=== PATIENT | female | born 1960 | race Hispanic/Latino ===

== ENCOUNTER 2018-02-01 21:12 | Observation (INO) | payer OTHER ==
[~2018-02-01] VITALS: Ht 149.9 cm; Wt 83.4 kg
[2018-02-01] MEDS ORDERED: LIDOCAINE HCL 2% VISCOUS 15 ML UDCUP ONE (21:41)
[2018-02-01] MEDS ORDERED: MAG HYDROX/AL HYDROX/SIMETH ES 30 ML SUSP UDCUP ONE (21:41)
[2018-02-01 21:42] LABS: BASOPHILS % (AUTO) 0.5 % (0.0-5.0); EOSINOPHILS % (AUTO) 2.8 % (0.0-8.0); HEMATOCRIT 38.8 % (36-48); LYMPHOCYTES % (AUTO) 28.5 % (21.0-51.0); MEAN CORPUSCULAR HEMOGLOBIN 27.5 pg (27.0-33.0); MEAN CORPUSCULAR HGB CONC 33.6 g/dL (32.0-36.0); MEAN CORPUSCULAR VOLUME 81.6 fL (79-99); MONOCYTES % (AUTO) 6.5 % (3.0-13.0); NEUTROPHILS % (AUTO) 61.7 % (40.0-77.0); PLATELET COUNT (AUTO) 284 K/uL (130-400); RED BLOOD CELL COUNT(AUTO) 4.76 MIL/uL (4.00-5.50); RED CELL DISTRIBUTION WIDTH 13.5 % (11.0-15.5); WHITE BLOOD COUNT (AUTO) 11.2 K/uL (4.8-10.8)
[2018-02-01] MEDS ORDERED: ACETAMINOPHEN-CODEINE ELIXIR 5 ML UDCUP ONE (21:42)
[2018-02-01 21:56] LABS: CREATININE 0.9 mg/dL (0.5-1.5); POTASSIUM 3.6 mmol/L (3.5-5.1)
[2018-02-01 21:58] LABS: PARTIAL THROMBOPLASTIN TIME 26.4 SEC (26.3-35.5); PROTHROMBIN TIME 10.5 SEC (9.6-11.6)
[2018-02-01 22:10] LABS: ALBUMIN 3.5 g/dL (3.5-5.0); BILIRUBIN,TOTAL 0.3 mg/dL (0.2-1.0); CREATINE KINASE MB 1.7 ng/mL (0.5-3.6); TOTAL PROTEIN, SERUM 7.6 g/dL (6.0-8.3)
[2018-02-01] MEDS ORDERED: NITROGLYCERIN 1GM/1 INCH PACKET TD ONE (23:29)
[2018-02-02] MEDS ORDERED: ENOXAPARIN SODIUM 30 MG/0.3 ML SQ ONE (04:46)
[2018-02-02] MEDS ORDERED: METOPROLOL TARTRATE 50 MG TAB ONE (04:46)
[2018-02-02] MEDS ORDERED: ASPIRIN 81MG TAB.CHEW ONE (04:46)
[2018-02-02] MEDS ORDERED: NITROGLYCERIN 1GM/1 INCH PACKET TD ONE ×2 (04:47→13:39)
[2018-02-02 05:56] LABS: CREATINE KINASE, TOTAL 73 U/L (21-232); MYOGLOBIN 28 ng/mL (10-92); TROPONIN I < 0.04 ng/mL (0.00-0.06)
[2018-02-02] MEDS ORDERED: MORPHINE SULFATE 4 MG/1ML SYG ONE (08:09)
[2018-02-02] MEDS ORDERED: ACETAMINOPHEN 325 MG TAB ONE (08:09)
[2018-02-02] MEDS ORDERED: ONDANSETRON ODT 4 MG TAB ONE (08:51)
[2018-02-02 14:34] LABS: CREATINE KINASE MB 0.8 ng/mL (0.5-3.6); CREATINE KINASE, TOTAL 68 U/L (21-232); MYOGLOBIN 28 ng/mL (10-92); TROPONIN I < 0.04 ng/mL (0.00-0.06)
[2018-02-02 15:40] VITALS: BP 144/83
[2018-02-02] MEDS ORDERED: LOSA50TA37 PO (15:44)
[2018-02-02] MEDS ORDERED: GABA300S PO (15:44)
[2018-02-02] MEDS ORDERED: AMLO10TA2 PO (15:44)
[2018-02-02] MEDS ORDERED: PRAV20TA4 PO (15:44)
[2018-02-02] MEDS ORDERED: ASPI-1197 PO (15:44)
[2018-02-02] MEDS ORDERED: METF10004 PO (15:44)
[2018-02-02] MEDS ORDERED: OMEP20TA25 PO (15:44)
[2018-02-02] MEDS ORDERED: LINA5TAB PO (15:44)
[2018-02-02] MEDS ORDERED: MIRA50TA PO (15:44)
[2018-02-02] MEDS ORDERED: LIRA0.6P SQ (15:44)
[2018-02-02] MEDS ORDERED: FLUT16H NS (15:44)
[2018-02-02] MEDS ORDERED: LORA10CA PO (15:44)
[2018-02-02] MEDS ORDERED: SERT50TA PO (15:44)
[2018-02-02] MEDS ORDERED: COMP10 PO (15:44)
[2018-02-02] MEDS ORDERED: CYAN1TAB3 PO (15:44)
[2018-02-02] MEDS: INSULIN HUMULIN R 100 UNIT/ML 3ML SQ SCH ×2 (16:30→21:00)
[2018-02-02] MEDS ORDERED: ONDANSETRON HCL MDV 20ML 2 MG/ML VIAL IVP PRN (18:15)
[2018-02-02] MEDS: NITROGLYCERIN 1GM/1 INCH PACKET TD SCH (18:15)
[2018-02-02] MEDS ORDERED: MORPHINE SULFATE 2 MG/ML 1ML SYG IVP PRN (18:15)
[2018-02-02 19:45] VITALS: BP 148/75
[2018-02-02] MEDS: METOPROLOL TARTRATE 25 MG TAB PO SCH (22:02)
[2018-02-02] MEDS: SERTRALINE HCL 50 MG TABLET PO SCH (22:02)
[2018-02-02] MEDS: GABAPENTIN 300 MG CAPSULE PO SCH (22:02)
[2018-02-02 23:53] VITALS: BP 151/75
[2018-02-03] MEDS: NITROGLYCERIN 1GM/1 INCH PACKET TD SCH ×4 (00:15→17:42)
[2018-02-03 04:55] VITALS: BP 148/73
[2018-02-03 07:00] VITALS: BP 131/76
[2018-02-03] MEDS: INSULIN HUMULIN R 100 UNIT/ML 3ML SQ SCH ×4 (07:03→22:00)
[2018-02-03] MEDS: FOLIC ACID/VITAMIN B COMP W-C 1 MG CAPSULE PO SCH (08:40)
[2018-02-03] MEDS: ASPIRIN 81MG TAB.CHEW PO SCH (08:40)
[2018-02-03] MEDS: GABAPENTIN 300 MG CAPSULE PO SCH ×3 (08:40→21:55)
[2018-02-03] MEDS: ENOXAPARIN SODIUM 30 MG/0.3 ML SQ SCH (08:41)
[2018-02-03] MEDS: METOPROLOL TARTRATE 25 MG TAB PO SCH ×2 (08:41→21:55)
[2018-02-03] MEDS: LINAGLIPTIN 5 MG TABLET PO SCH (08:41)
[2018-02-03] MEDS: PANTOPRAZOLE SODIUM 40 MG TABLET.DR PO SCH (08:41)
[2018-02-03] MEDS: LOSARTAN 50 MG TABLET PO SCH (08:41)
[2018-02-03] MEDS: AMLODIPINE BESYLATE 5 MG TAB PO SCH (08:41)
[2018-02-03 11:00] VITALS: BP 138/75
[2018-02-03 16:00] VITALS: BP 143/66
[2018-02-03 20:00] VITALS: BP 138/78
[2018-02-03] MEDS: Pravastatin Sodium 20 MG PO SCH (21:00)
[2018-02-03] MEDS: SERTRALINE HCL 50 MG TABLET PO SCH (21:55)
[2018-02-04] VITALS (8 sets, daily range): BP systolic 108–144; BP diastolic 55–86
[2018-02-04] MEDS: NITROGLYCERIN 1GM/1 INCH PACKET TD SCH ×4 (05:05→23:51)
[2018-02-04 06:20] LABS: HEMATOCRIT 38.9 % (36-48); MEAN CORPUSCULAR HEMOGLOBIN 27.8 pg (27.0-33.0); MEAN CORPUSCULAR HGB CONC 33.6 g/dL (32.0-36.0); MEAN CORPUSCULAR VOLUME 82.7 fL (79-99); PLATELET COUNT (AUTO) 275 K/uL (130-400); RED CELL DISTRIBUTION WIDTH 13.8 % (11.0-15.5); WHITE BLOOD COUNT (AUTO) 11.3 K/uL (4.8-10.8)
[2018-02-04 06:43] LABS: ALBUMIN 3.2 g/dL (3.5-5.0); BILIRUBIN,TOTAL 0.5 mg/dL (0.2-1.0); CREATININE 0.8 mg/dL (0.5-1.5); MAGNESIUM 1.9 mg/dL (1.80-2.40); POTASSIUM 3.8 mmol/L (3.5-5.1); TOTAL PROTEIN, SERUM 7.1 g/dL (6.0-8.3)
[2018-02-04] MEDS: INSULIN HUMULIN R 100 UNIT/ML 3ML SQ SCH ×4 (07:30→21:15)
[2018-02-04] MEDS ORDERED: REGADENOSON 0.4 MG/5 ML PF SYG IVP SCH (08:15)
[2018-02-04] MEDS: LOSARTAN 50 MG TABLET PO SCH (11:47)
[2018-02-04] MEDS: METOPROLOL TARTRATE 25 MG TAB PO SCH ×2 (11:47→21:09)
[2018-02-04] MEDS: ASPIRIN 81MG TAB.CHEW PO SCH (11:47)
[2018-02-04] MEDS: ENOXAPARIN SODIUM 30 MG/0.3 ML SQ SCH (11:47)
[2018-02-04] MEDS: FOLIC ACID/VITAMIN B COMP W-C 1 MG CAPSULE PO SCH (11:48)
[2018-02-04] MEDS: GABAPENTIN 300 MG CAPSULE PO SCH ×3 (11:48→21:10)
[2018-02-04] MEDS: AMLODIPINE BESYLATE 5 MG TAB PO SCH (11:48)
[2018-02-04] MEDS: PANTOPRAZOLE SODIUM 40 MG TABLET.DR PO SCH (11:48)
[2018-02-04] MEDS: LINAGLIPTIN 5 MG TABLET PO SCH (11:48)
[2018-02-04] MEDS: Pravastatin Sodium 20 MG PO SCH (21:00)
[2018-02-04] MEDS: SERTRALINE HCL 50 MG TABLET PO SCH (21:10)
[2018-02-04] MEDS: ACETAMINOPHEN 325 MG TAB PO PRN (23:52)
[2018-02-05 03:30] VITALS: BP 142/68
[2018-02-05] MEDS: INSULIN HUMULIN R 100 UNIT/ML 3ML SQ SCH ×3 (06:21→18:35)
[2018-02-05] MEDS: NITROGLYCERIN 1GM/1 INCH PACKET TD SCH ×2 (06:26→14:28)
[2018-02-05 08:23] VITALS: BP 134/62
[2018-02-05] MEDS: ASPIRIN 81MG TAB.CHEW PO SCH (08:55)
[2018-02-05] MEDS: METOPROLOL TARTRATE 25 MG TAB PO SCH (08:55)
[2018-02-05] MEDS: GABAPENTIN 300 MG CAPSULE PO SCH ×2 (08:55→14:28)
[2018-02-05] MEDS: PANTOPRAZOLE SODIUM 40 MG TABLET.DR PO SCH (08:55)
[2018-02-05] MEDS: AMLODIPINE BESYLATE 5 MG TAB PO SCH (08:55)
[2018-02-05] MEDS: LINAGLIPTIN 5 MG TABLET PO SCH (08:55)
[2018-02-05] MEDS: LOSARTAN 50 MG TABLET PO SCH (08:55)
[2018-02-05] MEDS: FOLIC ACID/VITAMIN B COMP W-C 1 MG CAPSULE PO SCH (08:55)
[2018-02-05] MEDS: ENOXAPARIN SODIUM 30 MG/0.3 ML SQ SCH (09:01)
[2018-02-05 14:19] VITALS: BP 140/85
[2018-02-05] MEDS: ACETAMINOPHEN 325 MG TAB PO PRN (14:29)
[2018-02-05 17:13] VITALS: BP 125/64
[2018-02-05] MEDS ORDERED: CEFTRIAXONE SODIUM 1 GM ONE (17:33)
[2018-02-06] MEDS ORDERED: CEFTRIAXONE SODIUM 1 GM IV ONE (09:00)
== END 2018-02-05 18:45 | disposition home or self-care (01) ==
LOC: EDH 21:12 → INTOOBSV 02-02 00:15 → EDHIP 02-02 00:15 → 3DH 02-02 15:46
PROVIDERS: ADMIT Internal Medicine Infectious Disease; ATTEND Internal Medicine Infectious Disease
DX: R07.9 Chest pain, unspecified (principal); I10 Essential (primary) hypertension; E66.9 Obesity, unspecified; D72.829 Elevated white blood cell count, unspecified; F32.9 Major depressive disorder, single episode, unspecified; Z90.710 Acquired absence of both cervix and uterus; E11.9 Type 2 diabetes mellitus without complications; E78.5 Hyperlipidemia, unspecified; Z83.3 Family history of diabetes mellitus; R53.81 Other malaise
CPT/HCPCS: 36415 ×3; 71045; 78452; 80053 ×2; 82550 ×3; 82553 ×3; 82948 ×14; 83735; 83874 ×3; 84484 ×4; 85025; 85027; 85610; 85730; 87088; 87186; 93005 ×2; 93017; 93306; 96372 ×3; 96374; 99285; A4218; A9500 ×2; G0378 ×90; J0696; J1650 ×4; J1815 ×3; J2270; J2785

== ENCOUNTER 2018-08-04 22:24 | Emergency (ER) | payer OTHER ==
[~2018-08-04 22:24] MED LIST: AMLO10TA6 PO; ASPI-1197 PO; COMP10 PO; CYAN1TAB3 PO; FLUT16H NS; GABA300S PO; LINA5TAB PO; LIRA0.6P SQ; LORA10CA PO; LOSA50TA25 PO; METF-446 PO; MIRA50TA PO; OMEP20TA25 PO; PRAV20TA4 PO; SERT50TA PO
[2018-08-04] MEDS ORDERED: ONDANSETRON HCL 4 MG/2 ML VIAL ONE (22:54)
[2018-08-04 23:04] LABS: BASOPHILS % (AUTO) 0.3 % (0.0-5.0); EOSINOPHILS % (AUTO) 0.1 % (0.0-8.0); LYMPHOCYTES % (AUTO) 9.2 % (21.0-51.0); MEAN CORPUSCULAR HEMOGLOBIN 28.3 pg (27.0-33.0); MEAN CORPUSCULAR HGB CONC 33.3 g/dL (32.0-36.0); MONOCYTES % (AUTO) 5.2 % (3.0-13.0); NEUTROPHILS % (AUTO) 85.2 % (40.0-77.0); PLATELET COUNT (AUTO) 206 K/uL (130-400); RED BLOOD CELL COUNT(AUTO) 4.12 MIL/uL (4.00-5.50); RED CELL DISTRIBUTION WIDTH 13.1 % (11.0-15.5); WHITE BLOOD COUNT (AUTO) 12.5 K/uL (4.8-10.8)
[2018-08-04 23:06] LABS: POTASSIUM 3.8 mmol/L (3.5-5.1)
[2018-08-04 23:10] LABS: ALBUMIN 3.5 g/dL (3.5-5.0); BILIRUBIN,TOTAL 0.7 mg/dL (0.2-1.0); TOTAL PROTEIN, SERUM 7.8 g/dL (6.0-8.3)
[2018-08-04] MEDS ORDERED: CEFTRIAXONE SODIUM 1 GM ONE (23:14)
[2018-08-04] MEDS ORDERED: ACETAMINOPHEN EXTRA STRENGTH 500 MG TABLET ONE (23:14)
== END 2018-08-04 23:56 | disposition home or self-care (01) ==
LOC: EDH 22:24
DX: K52.9 Noninfective gastroenteritis and colitis, unspecified (principal); F41.9 Anxiety disorder, unspecified; F32.9 Major depressive disorder, single episode, unspecified; E11.9 Type 2 diabetes mellitus without complications; E78.5 Hyperlipidemia, unspecified; I10 Essential (primary) hypertension; Z91.013 Allergy to seafood; Z88.8 Allergy status to other drugs, medicaments and biological substances; Z90.49 Acquired absence of other specified parts of digestive tract; Z98.890 Other specified postprocedural states
CPT/HCPCS: 36415; 80053; 83690; 84484; 85025; 93005; 96361; 96374; 96375; 99285; J0696; J2405

== ENCOUNTER 2019-04-25 15:39 | Observation (INO) | payer OTHER, MEDICARE ==
[~2019-04-25] VITALS: Ht 149.9 cm; Wt 82.5 kg
[~2019-04-25 15:39] MED LIST changes: -AMLO10TA6 PO; +AMLO10TA7 PO; -LOSA50TA25 PO; +LOSA50TA64 PO
[2019-04-25 16:15] LABS: BASOPHILS % (AUTO) 0.4 % (0.0-5.0); HEMATOCRIT 38.3 % (36-48); LYMPHOCYTES % (AUTO) 31.6 % (21.0-51.0); MEAN CORPUSCULAR HEMOGLOBIN 28.2 pg (27.0-33.0); MEAN CORPUSCULAR HGB CONC 33.5 g/dL (32.0-36.0); MEAN CORPUSCULAR VOLUME 84.2 fL (79-99); MONOCYTES % (AUTO) 6.1 % (3.0-13.0); NEUTROPHILS % (AUTO) 59.9 % (40.0-77.0); PLATELET COUNT (AUTO) 250 K/uL (130-400); RED BLOOD CELL COUNT(AUTO) 4.55 MIL/uL (4.00-5.50); RED CELL DISTRIBUTION WIDTH 13.7 % (11.0-15.5)
[2019-04-25 16:23] LABS: CREATININE 0.8 mg/dL (0.5-1.5); POTASSIUM 4.1 mmol/L (3.5-5.1)
[2019-04-25 16:28] LABS: ALBUMIN 3.7 g/dL (3.5-5.0); BILIRUBIN,TOTAL 0.3 mg/dL (0.2-1.0); TOTAL PROTEIN, SERUM 7.4 g/dL (6.0-8.3)
[2019-04-25 22:16] VITALS: BP 159/81
[2019-04-25] MEDS ORDERED: ACETAMINOPHEN 325 MG TAB PO PRN (22:30)
[2019-04-25 23:15] LABS: CREATINE KINASE, TOTAL 62 U/L (21-232); MYOGLOBIN 33 ng/mL (10-92); TROPONIN I < 0.04 ng/mL (0.00-0.06)
[2019-04-26 03:59] VITALS: BP 128/63
[2019-04-26 06:14] LABS: CREATINE KINASE, TOTAL 54 U/L (21-232); MYOGLOBIN 29 ng/mL (10-92); TROPONIN I < 0.04 ng/mL (0.00-0.06)
[2019-04-26 08:00] VITALS: BP 126/67
[2019-04-26] MEDS: METFORMIN HCL 500 MG TABLET PO SCH ×2 (08:44→16:37)
[2019-04-26] MEDS: GABAPENTIN 300 MG CAPSULE PO SCH ×2 (08:45→16:37)
[2019-04-26] MEDS ORDERED: ASPIRIN 325 MG TABLET PO SCH (09:00)
[2019-04-26] MEDS ORDERED: LINAGLIPTIN 5 MG TABLET PO SCH (09:00)
[2019-04-26] MEDS ORDERED: LOSARTAN 50 MG TABLET PO SCH (09:00)
[2019-04-26] MEDS ORDERED: PANTOPRAZOLE SODIUM 40 MG TABLET.DR PO SCH (09:00)
[2019-04-26] MEDS ORDERED: AMLODIPINE BESYLATE 5 MG TAB PO SCH (09:00)
[2019-04-26] MEDS ORDERED: SERTRALINE HCL 50 MG TABLET PO SCH (09:00)
[2019-04-26 12:00] VITALS: BP 125/71
--- NOTE | 2019-04-26 13:35 | NUR ---
DCP CM met with pt discussed dc plans. Pt is independent prior to admission, lives at home with spouse. Denies any equipments/services. Pt feels safe to go back home, son able to assist with transportation and needs as necessary. DC plan to home once stable. CM to cont to follow up. Addendum: 04/26/19 at 1336 by MALA TONEY LVN CM Amended: Links added.
[2019-04-26 16:00] VITALS: BP 128/65
== END 2019-04-26 20:30 | disposition home or self-care (01) ==
LOC: EDH 15:39 → EDHIP 17:09 → 3BH 21:32
PROVIDERS: ADMIT Internal Medicine; ATTEND Internal Medicine
DX: R07.89 Other chest pain (principal); E11.9 Type 2 diabetes mellitus without complications; I10 Essential (primary) hypertension; E78.5 Hyperlipidemia, unspecified; E66.9 Obesity, unspecified; G89.29 Other chronic pain; M54.9 Dorsalgia, unspecified; F41.9 Anxiety disorder, unspecified; F32.9 Major depressive disorder, single episode, unspecified; Z79.899 Other long term (current) drug therapy; Z90.710 Acquired absence of both cervix and uterus
CPT/HCPCS: 36415 ×2; 80053; 82550 ×2; 82948 ×3; 83874 ×2; 84484 ×3; 85025; 93005; 99284; G0378 ×27

== ENCOUNTER 2019-10-18 08:34 | Emergency (ER) | payer OTHER, MEDICARE ==
[2019-10-18] MEDS ORDERED: ONDANSETRON HCL 4 MG/2 ML VIAL ONE (08:55)
[2019-10-18] MEDS ORDERED: KETOROLAC TROMETHAMINE 30MG/ML ONE (08:55)
[2019-10-18] MEDS ORDERED: SODIUM CHLORIDE 0.9% 1000ML 1,000 ML IV ONE (08:55)
[2019-10-18 09:01] LABS: BASOPHILS % (AUTO) 0.3 % (0.0-5.0); EOSINOPHILS % (AUTO) 0.4 % (0.0-8.0); HEMATOCRIT 44.5 % (36-48); LYMPHOCYTES % (AUTO) 6.7 % (21.0-51.0); MEAN CORPUSCULAR HEMOGLOBIN 26.7 pg (27.0-33.0); MEAN CORPUSCULAR HGB CONC 31.9 g/dL (32.0-36.0); MEAN CORPUSCULAR VOLUME 83.6 fL (79-99); MONOCYTES % (AUTO) 3.9 % (3.0-13.0); NEUTROPHILS % (AUTO) 88.3 % (40.0-77.0); PLATELET COUNT (AUTO) 272 K/uL (130-400); RED BLOOD CELL COUNT(AUTO) 5.32 MIL/uL (4.00-5.50); RED CELL DISTRIBUTION WIDTH 13.2 % (11.0-15.5); WHITE BLOOD COUNT (AUTO) 14.5 K/uL (4.8-10.8)
[2019-10-18 09:22] LABS: CREATININE 0.8 mg/dL (0.5-1.5); POTASSIUM 4.3 mmol/L (3.5-5.1)
[2019-10-18 09:26] LABS: ALBUMIN 4.1 g/dL (3.5-5.0); BILIRUBIN,DIRECT 0.2 mg/dL (0.0-0.3); BILIRUBIN,TOTAL 0.8 mg/dL (0.2-1.0)
== END 2019-10-18 11:36 | disposition home or self-care (01) ==
LOC: EDH 08:34
DX: K52.9 Noninfective gastroenteritis and colitis, unspecified (principal); E78.5 Hyperlipidemia, unspecified; F41.9 Anxiety disorder, unspecified; I10 Essential (primary) hypertension; E11.40 Type 2 diabetes mellitus with diabetic neuropathy, unspecified; Z91.013 Allergy to seafood; Z88.1 Allergy status to other antibiotic agents; Z90.49 Acquired absence of other specified parts of digestive tract; Z98.890 Other specified postprocedural states
CPT/HCPCS: 36415; 74176; 80048; 80076; 83690; 85025; 93005; 96361; 96374; 96375; 99285; J1885; J2405; J7030

== ENCOUNTER 2019-11-08 21:41 | Emergency (ER) | payer MEDICARE ==
[2019-11-08] MEDS ORDERED: ASPIRIN 325 MG TABLET ONE (22:54)
[2019-11-08] MEDS ORDERED: LORAZEPAM 2 MG/ML 1 ML VIAL ONE (22:56)
[2019-11-08 22:58] LABS: AMPHET/METH SCREEN,URINE NEGATIVE (NEGATIVE); BARBITURATE SCREEN, URINE NEGATIVE (NEGATIVE); BENZODIAZEPINES SCREEN,URINE NEGATIVE (NEGATIVE); CANNABINOID SCREEN,URINE NEGATIVE (NEGATIVE); COCAINE SCREEN,URINE NEGATIVE (NEGATIVE); OPIATE SCREEN,URINE NEGATIVE (NEGATIVE); PHENCYCLIDINE SCREEN,URINE NEGATIVE (NEGATIVE)
[2019-11-08 23:08] LABS: BASOPHILS % (AUTO) 0.4 % (0.0-5.0); EOSINOPHILS % (AUTO) 1.9 % (0.0-8.0); LYMPHOCYTES % (AUTO) 33.1 % (21.0-51.0); MEAN CORPUSCULAR HEMOGLOBIN 26.9 pg (27.0-33.0); MEAN CORPUSCULAR HGB CONC 32.1 g/dL (32.0-36.0); MEAN CORPUSCULAR VOLUME 83.7 fL (79-99); MONOCYTES % (AUTO) 7.4 % (3.0-13.0); NEUTROPHILS % (AUTO) 56.7 % (40.0-77.0); PLATELET COUNT (AUTO) 268 K/uL (130-400); RED BLOOD CELL COUNT(AUTO) 5.02 MIL/uL (4.00-5.50); RED CELL DISTRIBUTION WIDTH 13.3 % (11.0-15.5); WHITE BLOOD COUNT (AUTO) 10.9 K/uL (4.8-10.8)
[2019-11-08 23:18] LABS: CREATININE 0.8 mg/dL (0.5-1.5); POTASSIUM 3.9 mmol/L (3.5-5.1)
[2019-11-08 23:30] LABS: B-TYPE NATRIURETIC PEPTIDE 17 pg/mL (0-100)
[2019-11-08 23:36] LABS: ALBUMIN 4.1 g/dL (3.5-5.0); BILIRUBIN,DIRECT 0.1 mg/dL (0.0-0.3); BILIRUBIN,TOTAL 0.4 mg/dL (0.2-1.0); TOTAL PROTEIN, SERUM 7.4 g/dL (6.0-8.3)
== END 2019-11-09 00:17 | disposition home or self-care (01) ==
LOC: EDH 21:41
DX: F41.1 Generalized anxiety disorder (principal); R07.89 Other chest pain; E11.40 Type 2 diabetes mellitus with diabetic neuropathy, unspecified; E78.5 Hyperlipidemia, unspecified; I10 Essential (primary) hypertension; F32.9 Major depressive disorder, single episode, unspecified; Z91.041 Radiographic dye allergy status; Z91.013 Allergy to seafood; Z90.49 Acquired absence of other specified parts of digestive tract; Z98.890 Other specified postprocedural states
CPT/HCPCS: 36415; 71045; 80048; 80076; 80305; 82550; 83880; 84484; 85025; 93005; 96374; 99285; J2060